=== PATIENT | male | born 1970 ===

== ENCOUNTER 2018-05-19 05:31 | Emergency (ER) | payer OTHER ==
[2018-05-19 05:55] VITALS: O2SAT 97
--- NOTE | 2018-05-19 06:47 | C.PDOC ---
History Of Present Illness 47 y/o male presents to ED with cc of pain in back and hurts to breathe when he stands up. pt seen in ed several days ago (under name diana good [birth year]) s/p witnessed fall in street with head injury and pt was intoxicated at the time. pt had neg head ct during ED visit. pt has not taken any analgesics for his back pain. denies bladder or bowel dysfunction, denies numbness or tingling to lower extremities. Time Seen by Provider: 05/19/18 06:15 Chief Complaint (Nursing): Back Pain History Per: Patient, [employer] ([id number]) History/Exam Limitations: language barrier Onset/Duration Of Symptoms: Days (2) Current Symptoms Are (Timing): Worse Quality Of Discomfort: Unable To Describe Severity: Severe Associated Symptoms: denies: Incontinence, New Weakness, New Numbness Exacerbating Factor(s): Standing Past Medical History Reviewed: Historical Data, Nursing Documentation, Vital Signs Vital Signs: Last Vital Signs Temp 99.2 F 05/19/18 05:47 Pulse 99 H 05/19/18 05:47 Resp 20 05/19/18 05:47 BP 164/98 H 05/19/18 05:47 Pulse Ox 97 05/19/18 05:47 - Medical History PMH: No Chronic Diseases Denies: Chronic Kidney Disease Family History: States: Unknown Family Hx - Social History Hx Tobacco Use: No Hx Alcohol Use: No Hx Substance Use: No - Immunization History Hx Tetanus Toxoid Vaccination: No Hx Influenza Vaccination: No Hx Pneumococcal Vaccination: No Review Of Systems Constitutional: Negative for: Fever, Chills Cardiovascular: Negative for: Chest Pain, Palpitations Respiratory: Negative for: Cough Gastrointestinal: Negative for: Nausea, Vomiting, Abdominal Pain, Diarrhea Musculoskeletal: Positive for: Back Pain. Negative for: Neck Pain Skin: Negative for: Lesions, Bruising Neurological: Negative for: Weakness, Numbness, Headache, Dizziness Physical Exam - Physical Exam Appears: Non-toxic, Other (uncomfortable) Skin: Warm (hot and dry, ), Dry Head: Atraumatic, Normacephalic Eye(s): bilateral: Normal Inspection Tongue: Normal Appearing Lips: Normal Appearing Gingiva: Normal Appearing Neck: No Midline Cervical Tenderness, No Paracervical Tenderness Lymphatic: Deferred Cardiovascular: Rhythm Regular, No Murmur Respiratory: No Decreased Breath Sounds, No Accessory Muscle Use, No Wheezing Gastrointestinal/Abdominal: Bowel Sounds, Soft, Tenderness, No Mass, No Guarding, No Rebound Back: Normal Inspection, No Vertebral Tenderness, Paraspinal Tenderness (right thoracic; in obvious pain when tryong to chnge position ), No Straight Leg Raising Extremity: Normal ROM, No Tenderness, No Pedal Edema, No Swelling Extremity: Bilateral: Atraumatic Neurological/Psych: Oriented x3, Normal Speech, Normal Cognition, Normal Motor, Normal Sensation ED Course And Treatment O2 Sat by Pulse Oximetry: 97 Medical Decision Making Medical Decision Makin47 y/o male with low back redman s/p fall while iintoxicated 2 days ago; pain worse with standing and has difficulty bvreathing when standing; will get labs, cxr, give toradol and re-ssess/ Disposition - Disposition Disposition Time: 07:11 Condition: STABLE Forms: [employer] (Latvian) - Clinical Impression Clinical Impression: Thoracic back pain Physician Patient Turnover Patient Signed Over To: Caroline Marte Handoff Comments: f/u labs, cxr, re-eval and disposition
[2018-05-19 07:20] LABS: BASO % 0.3 % (0.0-2.0); EOS % 0.4 % (0.0-4.0); HEMOGLOBIN 13.2 g/dL (12.0-18.0); LYMPH # 0.3 K/uL (1.0-4.3); LYMPH % 3.5 % (20.0-40.0); MEAN CELL VOLUME 88.1 fL (80.0-94.0); MEAN CORPUSCULAR HGB CONC 34.1 g/dL (33.0-37.0); MEAN PLATELET VOLUME 8.7 fL (7.2-11.7); MONO # 0.4 K/uL (0.0-0.8); MONO % 5.9 % (0.0-10.0); NEUT # 6.7 K/uL (1.8-7.0); NEUT % 89.9 % (50.0-75.0); NRBC % 0.1 % (0.0-2.0); PLATELET COUNT 238 K/uL (130-400); RBC 4.41 Mil/uL (4.40-5.90); RED CELL DISTRIBUTION WIDTH 14.7 % (11.5-14.5); WHITE BLOOD COUNT 7.5 K/uL (4.8-10.8)
[2018-05-19] MEDS ORDERED: Sodium Chloride 0.9% 1,000 ML IV ONE (07:44)
[2018-05-19 08:15] LABS: ALB/GLOB RATIO 1.4 (1.0-2.1); ALBUMIN 4.4 g/dL (3.5-5.0); ALT/SGPT 30 U/L (21-72); AST/SGOT 39 U/L (17-59); BLOOD UREA NITROGEN 7 mg/dL (9-20); CALCIUM 9.3 mg/dl (8.6-10.4); GFR NON-AFRICAN AMERICAN > 60; LIPASE 32 U/L (23-300)
[2018-05-19 08:24] LABS: BANDS 6 % (0-2); LYMPHOCYTE 3 % (20-40); MONOCYTE 6 % (0-10); NEUTROPHIL 85 % (50-75); PLATELET ESTIMATE NORMAL (NORMAL); TOTAL CELLS COUNTED 100
[2018-05-19 08:25] LABS: LARGE PLATELETS PRESENT; STOMATOCYTES SLIGHT
--- NOTE | 2018-05-19 09:05 | RAD ---
Date of service: 05/19/2018 HISTORY: upper back pain COMPARISON: No prior. TECHNIQUE: Chest PA and lateral views FINDINGS: LUNGS: Mild bibasilar atelectasis. PLEURA: No significant pleural effusion identified. No pneumothorax apparent. CARDIOVASCULAR: No aortic atherosclerotic calcification present. Normal cardiac size. No pulmonary vascular congestion. OSSEOUS STRUCTURES: No significant abnormalities. VISUALIZED UPPER ABDOMEN: Normal. OTHER FINDINGS: None. IMPRESSION: Mild bibasilar atelectasis.
[2018-05-19 09:30] LABS: SQUAMOUS EPITHIAL < 1 /hpf (0-5); URINE BILIRUBIN NEGATIVE (NEGATIVE); URINE BLOOD NEGATIVE (NEGATIVE); URINE CLARITY Clear (Clear); URINE COLOR Yellow (YELLOW); URINE GLUCOSE (UA) NORMAL (Normal); URINE LEUKOCYTE ESTERASE NEG Leu/uL (Negative); URINE PROTEIN NEGATIVE (NEGATIVE)
[2018-05-19 09:48] LABS: BARBITURATES, UR NEGATIVE (NEGATIVE); BENZODIAZEPINES, UR NEGATIVE (NEGATIVE); OPIATES, UR NEGATIVE (NEGATIVE); PHENCYCLIDINE, UR NEGATIVE (NEGATIVE)
[2018-05-19 10:12] VITALS: BP 177/98; PULSE 100; RESP 16; TEMP 101.1
== END 2018-05-19 11:15 | disposition home or self-care (01) ==
LOC: C.ER 05:31
DX: M54.5 Low back pain (principal)
CPT/HCPCS: 71046; 80053; 80320; 80324; 80345; 80346; 80349; 80353; 80358; 80361; 81001; 83690; 83992; 85025; 87804; 96361; 96374; 99285; J1885; J7030